=== PATIENT | male | born 1995 | race Asian ===

== ENCOUNTER 2016-10-09 19:48 | Emergency (ER) | payer SELFPAY ==
[2016-10-10] MEDS ORDERED: HYDROCODONE/ACETAMINOPHEN 5/325MG TABLET ONE
--- NOTE | 2016-10-10 07:30 | RAD ---
FOOT LEFT 3 VIEWS HISTORY: Foot pain and swelling after injury. COMPARISONS: None. FINDINGS: 3 views of the left foot were performed demonstrating evidence of a fracture involving the proximal left fifth metatarsal with minimal displacement. The remaining osseous structures appear to be intact. The alignment is appropriate. No focal soft tissue abnormalities are seen. IMPRESSION: 1. A minimally displaced fracture involving the proximal left fifth metatarsal.
== END 2016-10-10 00:24 | disposition home or self-care (01) ==
LOC: ED 19:48
DX: S92.352A Displaced fracture of fifth metatarsal bone, left foot, initial encounter for closed fracture (principal); W10.9XXA Fall (on) (from) unspecified stairs and steps, initial encounter; Y92.9 Unspecified place or not applicable
CPT/HCPCS: 73630; 99283 ×2; 29515; A9270